=== PATIENT | male | born 1930 | race Caucasian/White ===

== ENCOUNTER → 2019-05-14 | Day surgery (SDC) | payer MEDICARE ==
[2019-05-10 17:11] LABS: BASOPHILS % 0.5 % (0.0-1.0); EOSINOPHILS # (AUTO) 0.1 (0.0-0.4); EOSINOPHILS % 1.8 % (0.0-6.0); HEMATOCRIT 47.9 % (38.2-49.6); HEMOGLOBIN 16.3 g/dL (14.0-18.0); LYMPHOCYTES # (AUTO) 1.7 (1.0-3.2); LYMPHOCYTES % 29.3 % (18.0-39.1); MEAN CORPUSCULAR HEMOGLOBIN 32.4 pg (28-32); MEAN CORPUSCULAR VOLUME 95.2 fL (81-99); MONOCYTES # (AUTO) 0.9 (0.2-0.8); MONOCYTES % 15.5 % (4.4-11.3); NEUTROPHILS % 52.5 % (38.7-80.0); PLATELET COUNT 191 x10e3/uL (140-360); RED BLOOD COUNT 5.03 x10e6/uL (4.3-5.7); RED CELL DISTRIBUTION WIDTH 12.6 % (11.7-14.4)
[2019-05-10 17:30] LABS: ANION GAP 13.2 mmol/L (8-16); BLOOD UREA NITROGEN 14 mg/dL (7-26); BUN/CREATININE RATIO 17 (6-25); CALCIUM 10.7 mg/dL (8.4-10.2); CARBON DIOXIDE 30 mmol/L (22-29); CHLORIDE 100 mmol/L (98-107); CREATININE, SERUM 0.84 mg/dL (0.72-1.25); EST GLOMERULAR FILTRATION RATE > 60 ML/MIN (60-); GLUCOSE 106 mg/dL (74-118); POTASSIUM 4.2 mmol/L (3.5-5.1); SODIUM 139 mmol/L (136-145)
--- NOTE | 2019-05-10 18:03 | Diagnostic Imaging Report ---
EXAMINATION: CHEST 2 VIEWS INDICATION: Pre-operative COMPARISON: Chest radiograph of 12/19/2014 FINDINGS: LINES/TUBES:None LUNGS:The lungs are well-inflated. Mild biapical pleural parenchymal thickening/scarring. No focal consolidation or pulmonary edema. PLEURA:No pleural effusion or pneumothorax. MEDIASTINUM: Cardiomediastinal silhouette is stably enlarged. Atherosclerotic calcifications of the thoracic aorta. BONES/SOFT TISSUES:No acute osseous injury. ABDOMEN:No free air under the diaphragm. IMPRESSION: No focal pneumonia or pulmonary edema. Stable cardiomegaly. Signed by: Martina Kraft MD on 05/10/2019 6:00 PM
[~2019-05-14] MED LIST: BUPIVACAINE HCL 0.5% INJ 30 ML VIAL INJ ONE; CEFAZOLIN SOD 1 GM/NS 50ML 100 ML IV ONE; COQ10 PO; DEXAMETHASONE SOD PHOS INJ 4 MG/ML VIAL ONE; FISH OIL 1,0001 EAC2 PO; LASIX20 MG PO; LIDOCAINE HCL 2% LOCAL INJ 5 ML SDV VIAL INJ ONE; LISINOPRIL2.5 MG PO; MUPIROCIN 2% OINT 22 GM TUBE ONE; ONDANSETRON HCL INJ 2MG/ML 2ML 2 MG/ML VIAL ONE; PROPOFOL IV EMULSION 10 MG/ML 20 ML VIAL ONE; SEVOFLURANE INHAL SOLN 250 ML PEN BTL ONE; SYNTHROID50 MCG PO; VITAMIN D400 UNIT PO; WARFARIN SODIUM1 MG PO
--- OUTSIDE RECORDS SUMMARY | 2019-05-14 07:49 | XMS REPORT ---
Author Author [facility] Address Unknown Phone Unavailable Care Team Providers Care Hospital Clerk Name Role Phone JOEY MOSS Unavailable Unavailable OLIVA LEE Unavailable Unavailable Problems This patient has no known problems. Allergies, Adverse Reactions, Alerts This patient has no known allergies or adverse reactions. Medications This patient has no known medications. Results Test Description Test Time Test Comments Text Results Atomic Results Result Comments CHEST 2 VIEWS 2019-05-10 17:57:00 [place] [address] Patient Name: ANTONIO MCDONNELL MR #: [id number] : 1930 Age/Sex: 88/M Req #: [id number] Adm Physician: Ordered by: JOEY MOSS DP Report #: [id number] Location: OR Room/Bed: Procedure: [id number] DX/CHEST 2 VIEWS Exam Date: 05/10/19 Exam Time: 1652 REPORT STATUS: Signed EXAMINATION: CHEST 2 VIEWS INDICATION: Pre-operative COMPARISON: Chest radiograph of 12/19/2014 FINDINGS: LINES/TUBES:None LUNGS:The lungs are well-inflated. Mild biapical pleural parenchymal thickening/scarring. No focal consolidation or pulmonary edema. PLEURA:No pleural effusion or pneumothorax. MEDIASTINUM: Cardiomediastinal silhouette is stably enlarged. Atherosclerotic calcifications of the thoracic aorta. BONES/SOFT TISSUES:No acute osseous injury. ABDOMEN:No free air under the diaphragm. IMPRESSION: No focal pneumonia or pulmonary edema. Stable cardiomegaly. Signed by: Maria Luz Dunn MD on 05/10/2019 6:00 PM Dictated By: MARIA LUZ DUNN MD 99 Transcribed By: JOAQUIN on 05/10/19 1800 COPY TO: JOEY MOSS DPM US RENAL RETROPERITONEAL COMP [place] [address] Patient Name: ANTONIO MCDONNELL MR #: [id number] : 1930 Age/Sex: 86/M Req #: [id number] Adm Physician: Ordered by: OLIVA LEE MD Report #: [id number] Location: Room/Bed: Procedure: [id number] US/US RENAL RETROPERITONEAL COMP Exam Date: 06/18/17 Exam Time: 1553 REPORT STATUS: Signed PROCEDURE: US RETROPERITONEAL ( KIDNEY ). COMPARISON: CT, CT ABDOMEN/PELVIS WOW, 04/26/2014, 9:41. INDICATIONS: Right Flank Pain for 3 months TECHNIQUE: Petty-scale and color sonographic images of the bilateral kidneys and bladder where obtained in transverse and longitudinal planes. FINDINGS: RIGHT KIDNEY: 12.0 cm, cortex 1.6 cm Cysts: 2.2 x 1.7 x 2.0 cm cystic, anechoic, nonvascular structure in the renal sinus at the mid aspect, likely representing a parapelvic cyst. Solid masses: None Stones: None Hydronephrosis: None Echogenicity: Normal LEFT KIDNEY: 12.6 cm, cortex 2.3 cm Cysts: None Solid masses: None Stones: None Hydronephrosis: None Echogenicity: Normal Bladder: No focal lesions. Bilateral ureteral jets are identified. Prostate: 3.2 x 3.5 x 2.8 cm (estimated volume 16.7 CC). CONCLUSION: 1. Normal bilateral renal size, and echogenicity. No hydronephrosis or stones. 2. 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 Pineda Ewing M.D. Dictated by: Pineda Ewing M.D. on 06/18/2017 at 17:11 Electronically approved by: Pineda Ewing M.D. on 06/18/2017 at 17:11 Dictated By: PINEDA EWING MD 10 Transcribed By: TOMAS on 06/18/171710 COPY TO: OLIVA LEE MD LUMBAR 3 VIEW [place] [address] Patient Name: ANTONIO MCDONNELL MR #: [id number] : 1930 Age/Sex: 86/M Req #: [id number] Adm Physician: Ordered by: OLIVA LEE MD Report #: [id number] Location: [facility] Room/Bed: Procedure: [id number] DX/LUMBAR 3 VIEW Exam Date: 06/05/17 Exam Time: 1320 REPORT STATUS: Signed PROCEDURE: L-SPINE 3V COMPARISON: 04/20/2014.. INDICATIONS: BACK PAIN FINDINGS: 5 non-rib bearing lumbar vertebral bodies. No acute, displaced fracture or subluxation. Multilevel disc space narrowing and marginal osteophytosis is again noted, along with multilevel bilateral facet arthropathy. Bridging osteophytosis has progressed, most notably at L3-L4. Overall, findings are otherwise similar to that noted in April 2014. 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 Atherosclerotic vascular calcifications. 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 Dictated by: Ashlie Asif M.D. on 06/05/2017 at 14:12 Electronically approved by: Ashlie Asif M.D. on 06/05/2017 at 14:12 Dictated By: ASHLIE ASIF MD 1412 Transcribed By: TOMAS on 06/05/17 1412 COPY TO: OLIVA LEE MD
[2019-05-14 08:31] LABS: PARTIAL THROMBOPLASTIN TIME 30.2 seconds (23.8-35.5); PROTHROMBIN TIME 13.7 seconds (11.9-14.5)
[2019-05-14 11:45] VITALS: BP 151/86
--- NOTE | 2019-05-14 14:42 | Operative Report ---
DATE OF PROCEDURE: 05/14/2019 SURGEON: Juan Mejia DPM ROOM NUMBER: [facility]. 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 Painful lesion, sub IPJ left foot. ANESTHESIA: General endotracheal. HEMOSTASIS: A left thigh tourniquet at 350 mmHg. PROCEDURES: Alaniz bunionectomy, left foot, exostectomy of the left hallux and excision of the lesion primarily with flap closure, plantar aspect of the left foot. PROCEDURE IN DETAIL: The patient was taken to the operating room in a mildly sedated state and placed on the operating table in supine position. Following induction of general anesthetic, the left lower extremity was elevated to 60 degrees to exsanguinate before inflating the pneumatic thigh tourniquet to 350 mmHg to create good hemostasis. Left lower extremity was placed on the operating table prior to performing the following procedure: Procedure #1: Alaniz bunionectomy, left foot. An approximate 4 cm dorsal linear incision was made overlying the 1st metatarsophalangeal joint. The base of the proximal phalanx was identified, delivered in the surgical site and resected utilizing oscillating saw. The area was irrigated and deep closure with 3-0 Vicryl, subcutaneous closure with 4-0 Vicryl, and skin closure with 4-0 nylon. The interphalangeal joint of the hallux was identified, noted to have significant hypertrophic bone; linear incision was made and the dissection was carried to the bone and oscillating saw used to resect the underlying bone spurring; this having been accomplished. The area was irrigated with copious amounts of sterile saline solution. Deep closure with 3-0 Vicryl, skin closure with 4-0 nylon. The lesion on the plantar aspect of the left hallux was then identified and that large lesion was ellipsed with two converging semi-elliptical incisions. The flap closure was then performed to allow skin edges coaptation in the central aspect as well as the distal and proximal aspects of the wound, the area was then treated with human tissue allograft as a closure technique and blocked with 0.5 Marcaine. The release of the pneumatic thigh tourniquet showed normal hyperemic flush to all digits of the left foot. The patient left the operating room, vital signs are stable, in apparent satisfactory condition having tolerated both the anesthetic and the procedure very well. REY Hassan /[id number]
== END | disposition home or self-care (01) ==
LOC: OR 07:32
PROVIDERS: ATTEND Podiatrist Foot Surgery
DX: M20.12 Hallux valgus (acquired), left foot (principal); M77.52 Other enthesopathy of left foot and ankle; D36.7 Benign neoplasm of other specified sites; L98.8 Other specified disorders of the skin and subcutaneous tissue; I48.91 Unspecified atrial fibrillation; I10 Essential (primary) hypertension; E03.9 Hypothyroidism, unspecified; F03.90 Unspecified dementia, unspecified severity, without behavioral disturbance, psychotic disturbance, mood disturbance, and anxiety; Z01.810 Encounter for preprocedural cardiovascular examination; Z01.812 Encounter for preprocedural laboratory examination; Z01.818 Encounter for other preprocedural examination; Z79.01 Long term (current) use of anticoagulants
CPT/HCPCS: 11421; 28108; 28292; 36415 ×2; 71046; 80048; 85025; 85610; 85730; 93005; J0690; J1100; J2001; J2405; J2704; 76000; Q4100

== ENCOUNTER → 2019-10-08 | Outpatient (CLI) | payer MEDICARE ==
[~2019-10-08] MED LIST changes: -BUPIVACAINE HCL 0.5% INJ 30 ML VIAL INJ ONE; -CEFAZOLIN SOD 1 GM/NS 50ML 100 ML IV ONE; -DEXAMETHASONE SOD PHOS INJ 4 MG/ML VIAL ONE; -LIDOCAINE HCL 2% LOCAL INJ 5 ML SDV VIAL INJ ONE; -MUPIROCIN 2% OINT 22 GM TUBE ONE; -ONDANSETRON HCL INJ 2MG/ML 2ML 2 MG/ML VIAL ONE; -PROPOFOL IV EMULSION 10 MG/ML 20 ML VIAL ONE; -SEVOFLURANE INHAL SOLN 250 ML PEN BTL ONE
--- NOTE | 2019-10-08 11:29 | Diagnostic Imaging Report ---
Chest, PA and lateral. History: CHF. Comparison: 05/10/2019. Discussion: The heart is mildly enlarged, stable. The mediastinal and hilar contours are unremarkable. There is no focal consolidation, sizable pleural effusion, or pneumothorax. There is biapical pleural-parenchymal scarring which is unchanged from prior examination. IMPRESSION: Stable cardiomegaly. No radiographic evidence of acute cardiopulmonary process. Signed by: Dany Kramer MD on 10/08/2019 11:25 AM
== END ==
LOC: RAD 10:51
PROVIDERS: ATTEND Internal Medicine
DX: I50.33 Acute on chronic diastolic (congestive) heart failure (principal)
CPT/HCPCS: 71046